=== PATIENT | female | born 1995 | race Asian ===

== ENCOUNTER 2019-05-07 17:33 | Emergency (ER) | payer OTHER ==
[2019-05-07] MEDS ORDERED: NA CHLORIDE 0.9% 1,000 ML ONE (17:55)
[2019-05-07 18:31] LABS: Absolute Lymphocytes (CBC) 4.7 K/uL (0.7-4.9); Basophils % 0.3 % (0-1.3); Hematocrit 40.6 % (36.0-45.0); MPV 8.6 fL (7.6-11.3)
[2019-05-07 18:40] LABS: Protime INR 0.88
[2019-05-07 18:42] LABS: ALT/SGPT 33 U/L (12-78); AST/SGOT 22 U/L (15-37); Albumin 4.3 g/dL (3.4-5.0); Alkaline Phosphatase 78 U/L (45-117); BUN Blood Urea Nitrogen 10 mg/dL (7-18); Bicarbonate 28 mmol/L (21-32); Bilirubin Direct 0.2 mg/dL (0-0.2); Bilirubin Total 0.7 mg/dL (0.2-1.0); Glucose Level 131 mg/dL (74-106); Magnesium 2.3 mg/dL (1.8-2.4); NT PRO-BNP 32 pg/mL (<125); Potassium 3.7 mmol/L (3.5-5.1); Protein, Total 8.6 g/dL (6.4-8.2); Sodium Level 139 mmol/L (136-145); Troponin (Emerg Dept Use Only) < 0.02 ng/mL (0.0-0.045)
--- NOTE | 2019-05-07 19:03 | EDPHYS ---
Physician Documentation [facility] Name: Teagan Welch Age: 23 yrs Sex: Female : 1995 Arrival Date: 05/07/2019 Time: 17:37 Bed 8 Private MD: ED Physician Lee Black HPI: 05/07 18:21 This 23 yrs old Female presents to ER via Ambulatory with complaints of Chest marcin Pain. 18:21 The patient or guardian reports chest pain that is located primarily in the anterior marcin chest wall, left. The pain radiates to left neck. Associated signs and symptoms: The patient has no apparent associated signs or symptoms. The chest pain is described as aching. Modifying factors: The symptoms are alleviated by nothing. the symptoms are aggravated by nothing. Severity of pain: At its worst the pain was mild in the emergency department the pain is unchanged. The patient has not experienced similar symptoms in the past. 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 - Social history:: Smoking status: Patient/guardian denies using tobacco. - Ebola Screening: : Patient denies travel to an Ebola-affected area in the 21 days before illness onset. - Family history:: not pertinent. ROS: 18:21 Constitutional: Negative for fever, chills, and weight loss, Eyes: Negative for injury, marcin pain, redness, and discharge, ENT: Negative for injury, pain, and discharge, Neck: Negative for injury, pain, and swelling, Respiratory: Negative for shortness of breath, cough, wheezing, and pleuritic chest pain, Abdomen/GI: Negative for abdominal pain, nausea, vomiting, diarrhea, and constipation, Back: Negative for injury and pain, : Negative for injury, bleeding, discharge, and swelling, MS/Extremity: Negative for injury and deformity, Skin: Negative for injury, rash, and discoloration, Neuro: Negative for headache, weakness, numbness, tingling, and seizure, Psych: Negative for depression, anxiety, suicide ideation, homicidal ideation, and hallucinations, Allergy/Immunology: Negative for hives, rash, and allergies, Endocrine: Negative for neck swelling, polydipsia, polyuria, polyphagia, and marked weight changes. 18:21 Cardiovascular: Positive for chest pain, of the left clavicle and anterior aspect of left upper chest. Exam: 18:21 Constitutional: This is a well developed, well nourished patient who is awake, alert, marcin and in no acute distress. Head/Face: Normocephalic, atraumatic. Eyes: Pupils equal round and reactive to light, extra-ocular motions intact. Lids and lashes normal. Conjunctiva and sclera are non-icteric and not injected. Cornea within normal limits. Periorbital areas with no swelling, redness, or edema. ENT: Nares patent. No nasal discharge, no septal abnormalities noted. Tympanic membranes are normal and external auditory canals are clear. Oropharynx with no redness, swelling, or masses, exudates, or evidence of obstruction, uvula midline. Mucous membranes moist. Neck: Trachea midline, no thyromegaly or masses palpated, and no cervical lymphadenopathy. Supple, full range of motion without nuchal rigidity, or vertebral point tenderness. No Meningismus. Cardiovascular: Regular rate and rhythm with a normal S1 and S2. No gallops, murmurs, or rubs. Normal PMI, no JVD. No pulse deficits. Respiratory: Lungs have equal breath sounds bilaterally, clear to auscultation and percussion. No rales, rhonchi or wheezes noted. No increased work of breathing, no retractions or nasal flaring. Abdomen/GI: Soft, non-tender, with normal bowel sounds. No distension or tympany. No guarding or rebound. No evidence of tenderness throughout. Back: No spinal tenderness. No costovertebral tenderness. Full range of motion. Skin: Warm, dry with normal turgor. Normal color with no rashes, no lesions, and no evidence of cellulitis. MS/ Extremity: Pulses equal, no cyanosis. Neurovascular intact. Full, normal range of motion. Neuro: Awake and alert, GCS 15, oriented to person, place, time, and situation. Cranial nerves II-XII grossly intact. Motor strength 5/5 in all extremities. Sensory grossly intact. Cerebellar exam normal. Normal gait. Psych: Awake, alert, with orientation to person, place and time. Behavior, mood, and affect are within normal limits. 18:21 Chest/axilla: Inspection: normal, no acute changes, Palpation: tenderness, that is mild, of the left clavicle and anterior aspect of left upper chest, Axilla: are normal, no abscess, no cellulitis, no mass, no palpable nodes, no rash, no acute changes, lymphadenopathy, is not appreciated, Lymph nodes: lymphadenopathy is not appreciated. 18:24 Musculoskeletal/extremity: DVT Exam: No signs of deep vein thrombosis. no pain, no marcin swelling, no tenderness, negative Homans' sign noted on exam, no appreciated bluish discoloration, no erythema, no increased warmth, no trauma, no stasis, no hc state. Vital Signs: 17:42 BP 146 / 86; Pulse 99; Resp 18; Temp 98.4; Pulse Ox 100% on R/A; Weight 76.2 kg (R); aj1 Height 5 ft. 3 in. (160.02 cm) (R); Pain 5/10; 19:42 BP 120 / 83; Pulse 84; Resp 16; Temp 98.1; Pulse Ox 98% on R/A; Pain 0/10; aa1 17:42 Body Mass Index 29.76 (76.20 kg, 160.02 cm) aj1 MDM: 17:43 Patient medically screened. [facility] 18:24 Data reviewed: vital signs, nurses notes, lab test result(s), EKG, radiologic studies, [facility] plain films. 05/07 17:46 Order name: Basic Metabolic Panel; Complete Time: 18:58 [facility] 05/07 17:46 Order name: CBC with Diff [facility] 05/07 17:46 Order name: LFT's; Complete Time: 18:58 [facility] 05/07 17:46 Order name: Magnesium; Complete Time: 18:58 [facility] 05/07 17:46 Order name: NT PRO-BNP; Complete Time: 18:58 [facility] 05/07 17:46 Order name: PT-INR; Complete Time: 18:58 [facility] 05/07 17:46 Order name: Troponin (emerg Dept Use Only); Complete Time: 18:58 [facility] 05/07 17:46 Order name: XRAY Chest (1 view) [facility] 05/07 17:46 Order name: D-Dimer; Complete Time: 18:58 [facility] 05/07 17:46 Order name: UDS [facility] 05/07 19:28 Order name: Urine Dipstick--Ancillary (enter results) [place] 05/07 19:28 Order name: Urine --Ancillary (enter results) [place] 05/07 19:31 Order name: Urine Culture [facility] 05/07 17:46 Order name: EKG; Complete Time: 17:48 [facility] 05/07 17:46 Order name: Cardiac monitoring; Complete Time: 17:53 [facility] 05/07 17:46 Order name: EKG - Nurse/Tech; Complete Time: 18:48 [facility] 05/07 17:46 Order name: IV Saline Lock; Complete Time: 17:53 [facility] 05/07 17:46 Order name: Labs collected and sent; Complete Time: 17:53 [facility] 05/07 17:46 Order name: O2 Per Protocol; Complete Time: 17:53 [facility] 05/07 17:46 Order name: O2 Sat Monitoring; Complete Time: 17:53 [facility] 05/07 17:46 Order name: Urine Dipstick-Ancillary (obtain specimen); Complete Time: 19:27 [facility] 05/07 17:46 Order name: Urine Test (obtain specimen); Complete Time: 19:27 [facility] Administered Medications: 18:25 Drug: NS 0.9% 1000 ml Route: IV; Rate: 1 bolus; Site: right antecubital; sg 19:40 Follow up: IV Status: Completed infusion; IV Intake: 1000ml aa1 19:27 Drug: Aspirin 162 mg Route: PO; hb 19:40 Follow up: Response: No adverse reaction; Medication administered at discharge. aa1 19:27 Drug: TORadol 30 mg Route: IVP; Site: right antecubital; hb 19:40 Follow up: Response: No adverse reaction; Medication administered at discharge. aa1 19:40 Drug: Rocephin 1 grams Route: IV; Rate: per protocol; Site: left antecubital; aa1 19:47 Follow up: IV Status: Completed infusion; IV Intake: 10ml aa1 Disposition: 05/07/19 19:02 Discharged to Home. Impression: Other chest pain - wall, Urinary tract infection, site not specified, Type 2 diabetes mellitus. - Condition is Stable. - Discharge Instructions: Nonspecific Chest Pain, Type 2 Diabetes Mellitus, Diagnosis, Adult, Urinary Tract Infection, Adult, Urinary Tract Infection, Adult, [id number], Aspirin and Your Heart, Type 2 Diabetes Mellitus, Diagnosis, Adult, [id number], Type 2 Diabetes Mellitus, Self Care, Adult, Type 2 Diabetes Mellitus, Self Care, Adult, [id number]. - Prescriptions for Cipro 250 mg Oral Tablet - take 1 tablet by ORAL route every 12 hours; 14 tablet. - Medication Reconciliation Form, Thank You Letter, Antibiotic Education, Prescription Opioid Use form. - Follow up: Private Physician; When: 2 - 3 days; Reason: Recheck today's complaints, Continuance of care, Re-evaluation by your physician. Follow up: Santos Brown MD; When: 2 - 3 days; Reason: Recheck today's complaints, Re-evaluation by your physician. - Problem is new. - Symptoms have improved. Signatures: Dispatcher [employer] EDMS Yodit Mcduffie RN RN aj1 Richie Conley RN RN sg Meg Leon RN RN aa1 Lee Black MD MD cha Baxter, Heather, RN RN Corrections: (The following items were deleted from the chart) 19:31 19:02 05/07/2019 19:02 Discharged to Home. Impression: Other chest pain - wall. marcin Condition is Stable. Forms are Medication Reconciliation Form, Thank You Letter, Antibiotic Education, Prescription Opioid Use. Follow up: Private Physician; When: 2 - 3 days; Reason: Recheck today's complaints, Continuance of care, Re-evaluation by your physician. Follow up: Santos Brown; When: 2 - 3 days; Reason: Recheck today's complaints, Re-evaluation by your physician. Problem is new. Symptoms have improved. marcin 19:32 19:31 05/07/2019 19:02 Discharged to Home. Impression: Other chest pain - wall; Urinary marcin tract infection, site not specified. Condition is Stable. Discharge Instructions: Nonspecific Chest Pain, Type 2 Diabetes Mellitus, Diagnosis, Adult, Aspirin and Your Heart, Type 2 Diabetes Mellitus, Diagnosis, Adult, [id number], Type 2 Diabetes Mellitus, Self Care, Adult, Type 2 Diabetes Mellitus, Self Care, Adult, [id number]. Forms are Medication Reconciliation Form, Thank You Letter, Antibiotic Education, Prescription Opioid Use. Follow up: Private Physician; When: 2 - 3 days; Reason: Recheck today's complaints, Continuance of care, Re-evaluation by your physician. Follow up: Santos Brown; When: 2 - 3 days; Reason: Recheck today's complaints, Re-evaluation by your physician. Problem is new. Symptoms have improved. [facility] 19:48 19:32 05/07/2019 19:02 Discharged to Home. Impression: Other chest pain - wall; Urinary aa1 tract infection, site not specified; Type 2 diabetes mellitus. Condition is Stable. Discharge Instructions: Nonspecific Chest Pain, Type 2 Diabetes Mellitus, Diagnosis, Adult, Aspirin and Your Heart, Type 2 Diabetes Mellitus, Diagnosis, Adult, [id number]-[id number], Type 2 Diabetes Mellitus, Self Care, Adult, Type 2 Diabetes Mellitus, Self Care, Adult, [id number]. Forms are Medication Reconciliation Form, Thank You Letter, Antibiotic Education, Prescription Opioid Use. Follow up: Private Physician; When: 2 - 3 days; Reason: Recheck today's complaints, Continuance of care, Re-evaluation by your physician. Follow up: Santos Brown; When: 2 - 3 days; Reason: Recheck today's complaints, Re-evaluation by your physician. Problem is new. Symptoms have improved. [facility]
--- NOTE | 2019-05-07 19:03 | ER ---
Nurse's Notes [facility] Name: Teagan Welch Age: 23 yrs Sex: Female : 1995 Arrival Date: 05/07/2019 Time: 17:37 Bed 8 Private MD: Diagnosis: Other chest pain-wall;Urinary tract infection, site not specified;Type 2 diabetes mellitus Presentation: 05/07 17:39 Presenting complaint: Patient states: "I've been having chest pains on and off for a aj1 couple weeks and then today it started to hurts into my arm and tingling into my neck area" Reports palpitations, shortness of breath denies dizziness. Transition of care: patient was not received from another setting of care. Onset of symptoms was 2018. Risk Assessment: Do you want to hurt yourself or someone else? Patient reports no desire to harm self or others. Initial Sepsis Screen: Does the patient meet any 2 criteria? HR > 90 bpm. No. Patient's initial sepsis screen is negative. Does the patient have a suspected source of infection? No. Patient's initial sepsis screen is negative. Care prior to arrival: None. 17:39 Method Of Arrival: Ambulatory aj1 17:39 Acuity: JAMES 3 aj1 Triage Assessment: 17:42 General: Appears in no apparent distress. comfortable, Behavior is calm, cooperative, aj1 appropriate for age. Pain: Pain currently is 5 out of 10 on a pain scale. Neuro: Level of Consciousness is awake, alert, obeys commands. Cardiovascular: Patient's skin is warm and dry. Respiratory: Airway is patent Respiratory effort is even, unlabored, Respiratory pattern is regular, symmetrical. 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 - Social history:: Smoking status: Patient/guardian denies using tobacco. - Ebola Screening: : Patient denies travel to an Ebola-affected area in the 21 days before illness onset. - Family history:: not pertinent. Screenin:10 Abuse screen: Denies threats or abuse. Denies injuries from another. Nutritional sg screening: No deficits noted. Tuberculosis screening: No symptoms or risk factors identified. Fall Risk None identified. Assessment: 18:10 General: Appears in no apparent distress. well groomed, well developed, well nourished, sg Behavior is calm, cooperative, appropriate for age. Pain: Complains of pain in chest and anterior aspect of left upper chest Quality of pain is described as tight, and sharp Is intermittent, episodic. Neuro: Level of Consciousness is awake, alert, obeys commands, Speech is normal, Facial symmetry appears normal. Cardiovascular: Capillary refill is brisk in bilateral fingers Patient's skin is warm and dry. Chest pain is denied. Respiratory: Airway is patent Respiratory effort is even, unlabored, Respiratory pattern is regular, symmetrical. GI: Abdomen is round non-distended. : No signs and/or symptoms were reported regarding the genitourinary system. EENT: No signs and/or symptoms were reported regarding the EENT system. Derm: Skin is pink, warm \\T\\ dry. Musculoskeletal: Circulation, motion, and sensation intact. Range of motion: intact in all extremities. 18:31 Reassessment: Patient appears in no apparent distress at this time. Patient is alert, sg oriented x 3, equal unlabored respirations, skin warm/dry/pink. 19:42 Reassessment: Patient appears in no apparent distress at this time. Patient is alert, aa1 oriented x 3, equal unlabored respirations, skin warm/dry/pink. Discussed d/c \\T\\ f/u instructions with pt; denies questions or concerns at this time. Ambulatory to lobby with steady gait Patient denies pain at this time. Patient states feeling better. Vital Signs: 17:42 BP 146 / 86; Pulse 99; Resp 18; Temp 98.4; Pulse Ox 100% on R/A; Weight 76.2 kg (R); aj1 Height 5 ft. 3 in. (160.02 cm) (R); Pain 5/10; 19:42 BP 120 / 83; Pulse 84; Resp 16; Temp 98.1; Pulse Ox 98% on R/A; Pain 0/10; aa1 17:42 Body Mass Index 29.76 (76.20 kg, 160.02 cm) aj1 ED Course: 17:37 Patient arrived in ED. mr 17:41 Triage completed. aj1 17:42 Arm band placed on Patient placed in an exam room. aj1 17:42 Patient has correct armband on for positive identification. Bed in low position. Call sg light in reach. vehicle monitor technician on. Pulse ox on. NIBP on. Door closed. Warm blanket given. Head of bed elevated. 17:43 Lee Black MD is Attending Physician. marcin 18:00 Initial lab(s) drawn, by me, sent to lab. Missed attempt(s): 22 gauge in right sg antecubital area. Bleeding controlled, band aid applied, catheter tip intact. 18:25 Inserted saline lock: 22 gauge in left antecubital area, using aseptic technique. Blood sg collected. 18:26 XRAY Chest (1 view) In Process Unspecified. EDMS 19:01 Santos Brown MD is Referral Physician. marcin 19:32 Urine collected: clean catch specimen, clear. sg 19:42 No provider procedures requiring assistance completed. IV discontinued, intact, aa1 bleeding controlled, No redness/swelling at site. Pressure dressing applied. Administered Medications: 18:25 Drug: NS 0.9% 1000 ml Route: IV; Rate: 1 bolus; Site: right antecubital; sg 19:40 Follow up: IV Status: Completed infusion; IV Intake: 1000ml aa1 19:27 Drug: Aspirin 162 mg Route: PO; hb 19:40 Follow up: Response: No adverse reaction; Medication administered at discharge. aa1 19:27 Drug: TORadol 30 mg Route: IVP; Site: right antecubital; hb 19:40 Follow up: Response: No adverse reaction; Medication administered at discharge. aa1 19:40 Drug: Rocephin 1 grams Route: IV; Rate: per protocol; Site: left antecubital; aa1 19:47 Follow up: IV Status: Completed infusion; IV Intake: 10ml aa1 Intake: 19:40 IV: 1000ml; Total: 1000ml. aa1 19:47 IV: 10ml; Total: 1010ml. aa1 Outcome: 19:02 Discharge ordered by . marcin 19:48 Discharged to home with family. aa1 19:48 Condition: good 19:48 Discharge instructions given to patient, family, Instructed on discharge instructions, follow up and referral plans. medication usage, Demonstrated understanding of instructions, follow-up care, medications, Prescriptions given X 1. 19:48 Patient left the ED. aa1 Addendum: 05/10/2019 07:57 Addendum: Culture Results: Positive urine culture. No further action required. Bacteria e b sensitive to prescribed antibiotic. Signatures: Dispatcher [employer] EDMS Yodit Mcduffie RN RN aj1 Richie Conley RN RN Meg Leon RN RN aa1 Lee Black MD MD cha Rivera, Mary mr Baxter, Heather, RN RN hb Botello, Elizabeth eb
[2019-05-07] MEDS ORDERED: ASPIRIN 81 MG CHEWABLE TABLET ONE (19:14)
[2019-05-07] MEDS ORDERED: KETOROLAC 30 MG/ML INJ ONE (19:14)
[2019-05-07 19:32] LABS: Urine Blood NEGATIVE (NEG); Urine Glucose NEGATIVE (NEG); Urine Protein NEGATIVE (NEG); Urine Specific Gravity 1.015 (1.005-1.030)
[2019-05-07] MEDS ORDERED: CEFTRIAXONE/SWI 1gm 1 GM/10 ML SYR ONE (19:37)
[2019-05-07 19:42] LABS: Barbiturates NEGATIVE (NEGATIVE); Benzodiazepines NEGATIVE (NEGATIVE); Cocaine NEGATIVE (NEGATIVE); METHAMPHETAM NEGATIVE (NEGATIVE); Methadone NEGATIVE (NEGATIVE); Opiates NEGATIVE (NEGATIVE); Phencyclidine NEGATIVE (NEGATIVE); THC Cannibis NEGATIVE (NEGATIVE)
--- NOTE | 2019-05-07 19:56 | RAD REPORT ---
EXAM DESCRIPTION: RAD - Chest Single View - 05/07/2019 6:25 pm CLINICAL HISTORY: Chest pain COMPARISON: January 2014 TECHNIQUE: AP portable chest image was obtained 1808 hours . FINDINGS: Lungs are clear. Heart and vasculature are normal. No measurable pleural effusion and no p neumothorax. No acute bony abnormality seen. No acute aortic findings suspected. IMPRESSION: No acute cardiopulmonary process.
[2019-05-07 20:02] LABS: Platelet Estimate ADEQ; Urine White Blood Cell Casts OK
[2019-05-07 20:03] LABS: Blood Morphology Comment NOTED (NOT SEEN)
[2019-05-07 20:55] VITALS: BP 120/83; TEMP 98.1; O2SAT 98
--- NOTE | 2019-05-08 12:22 | EKG ---
Test Date: 2019-05-07 Test Time: 18:09:28 Financial [employer] Plan Specialist: SWG MEASUREMENT RESULTS: Intervals: Rate: 96 MA: 154 QRSD: 88 QT: 334 QTc: 421 Elizabeth: P: 25 MA: 154 QRS: 73 T: 6 INTERPRETIVE STATEMENTS: Normal sinus rhythm Nonspecific T wave abnormality Abnormal ECG Compared to ECG 05/27/2015 21:18:44 Sinus tachycardia no longer present T-wave abnormality still present Electronically Signed On 05-08-19 12:19:33 [employer]REET[employer]ORMAN by Santos Brown
== END 2019-05-07 19:48 | disposition home or self-care (01) ==
LOC: ER 17:33
DX: N39.0 Urinary tract infection, site not specified (principal); E11.9 Type 2 diabetes mellitus without complications
CPT/HCPCS: 96361; 93005; 87088; 85025; 87086; 80048; 36415; 83735; 81025; 85610; 85379; 80076; 80307 ×8; 87077; 87186; 81003; 84484; 83880; 71045; 96375; 96374; 99284; J0696; J7030

== ENCOUNTER 2019-05-15 14:36 | Emergency (ER) | payer OTHER ==
[2019-05-15] MEDS ORDERED: NA CHLORIDE 0.9% 1,000 ML ONE (15:39)
--- NOTE | 2019-05-15 15:39 | RAD REPORT ---
EXAM DESCRIPTION: RAD - Chest Single View - 05/15/2019 3:26 pm CLINICAL HISTORY: Chest pain;Palpitations Chest pain. COMPARISON: Chest Single View dated 05/07/2019; CHEST PA AND LAT 2 VIEW dated 01/16/2014; CHEST PA AND LAT 2 VIEW dated 02/22/2010 FINDINGS: Portable technique limits examination quality. The lungs are grossly clear. The heart is normal in size. No displaced fractures. IMPRESSION: No acute intrathoracic process suspected.
[2019-05-15 15:52] LABS: Absolute Lymphocytes (CBC) 2.8 K/uL (0.7-4.9); Basophils % 0.5 % (0-1.3); Hematocrit 40.5 % (36.0-45.0); Lymphocytes % 28.4 % (15.3-44.8); MPV 8.4 fL (7.6-11.3); RBC Red Blood Cell Count 6.33 M/uL (3.86-4.86)
--- NOTE | 2019-05-15 15:58 | EKG ---
Test Date: 2019-05-15 Test Time: 15:09:49 Medicaid Billing Clerk: SARAH MEASUREMENT RESULTS: Intervals: Rate: 88 PA: 154 QRSD: 88 QT: 346 QTc: 418 Hugo: P: 50 PA: 154 QRS: 68 T: 34 INTERPRETIVE STATEMENTS: Normal sinus rhythm Cannot rule out Anterior infarct, age undetermined Abnormal ECG Compared to ECG 05/07/2019 18:09:28 Myocardial infarct finding now present T-wave abnormality no longer present Electronically Signed On 05-15-19 15:58:02 PATTERN STAMPER by Santos Brown
[2019-05-15 16:11] LABS: Urine Bacteria <20 /HPF (<20); Urine Culture Reflex Order NOT NEEDED; Urine RBC <5 /HPF (NONE SEEN)
[2019-05-15 16:14] LABS: BUN Blood Urea Nitrogen 10 mg/dL (7-18); Bicarbonate 28 mmol/L (21-32); Glucose Level 229 mg/dL (74-106); Magnesium 2.2 mg/dL (1.8-2.4); NT PRO-BNP 38 pg/mL (<125); Sodium Level 137 mmol/L (136-145); Thyroid Stimulating Hormone 0.652 uIU/mL (0.360-3.740); Troponin (Emerg Dept Use Only) < 0.02 ng/mL (0.0-0.045)
--- NOTE | 2019-05-15 17:33 | ER ---
Nurse's Notes [facility] Name: Teagan Welch Age: 23 yrs Sex: Female : 1995 Arrival Date: 05/15/2019 Time: 14:40 Bed 14 Private MD: Diagnosis: Palpitations;Dyspnea, unspecified Presentation: 05/15 14:40 Presenting complaint: Patient states: for the passed 2-3 days i feel short of breath, tw2 even just walking or talking i feel short of breath, and i feel like my heart is pounding. Transition of care: patient was not received from another setting of care. Onset of symptoms was May 15, 2019. Risk Assessment: Do you want to hurt yourself or someone else? Patient reports no desire to harm self or others. Initial Sepsis Screen: Does the patient meet any 2 criteria? No. Patient's initial sepsis screen is negative. Does the patient have a suspected source of infection? No. Patient's initial sepsis screen is negative. Care prior to arrival: None. 14:40 Method Of Arrival: Ambulatory tw2 14:40 Acuity: JAMES 3 tw2 Triage Assessment: 14:43 General: Appears in no apparent distress. Behavior is calm, cooperative, appropriate tw2 for age. Pain: Complains of pain in chest. Respiratory: Reports shortness of breath Onset: The symptoms/episode began/occurred 2-3 days, the patient has mild shortness of breath. 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 - Social history:: Smoking status: Patient/guardian denies using tobacco. - Ebola Screening: : Patient denies travel to an Ebola-affected area in the 21 days before illness onset. Screenin:45 Abuse screen: Denies threats or abuse. Nutritional screening: No deficits noted. tw2 Tuberculosis screening: No symptoms or risk factors identified. Fall Risk None identified. Assessment: 14:50 General: Appears in no apparent distress. comfortable, Behavior is calm, cooperative, rb1 Denies fever. Pain: Complains of pain in mid-sternal area Pain currently is 5 out of 10 on a pain scale. Pain began 2-3 days ago. Neuro: Level of Consciousness is awake, alert, obeys commands, Oriented to person, place, time, situation. Neuro: Denies blurred vision. Cardiovascular: Reports shortness of breath, feels like heart is racing Rhythm is sinus tachycardia. Respiratory: Airway is patent Respiratory effort is even, unlabored, Respiratory pattern is regular, symmetrical. GI: Reports nausea. : No signs and/or symptoms were reported regarding the genitourinary system. Derm: Skin is pink, warm \\T\\ dry. 15:50 Reassessment: Pt. reports that her IV is painful when being flushed. rb1 15:55 Reassessment: Patient appears in no apparent distress at this time. Patient and/or rb1 family updated on plan of care and expected duration. Pain level reassessed. Patient is alert, oriented x 3, equal unlabored respirations, skin warm/dry/pink. Initiated a new IV in the right AC, and discontinued the IV in the left AC. 16:42 Reassessment: Patient appears in no apparent distress at this time. Patient and/or rb1 family updated on plan of care and expected duration. Pain level reassessed. Patient is alert, oriented x 3, equal unlabored respirations, skin warm/dry/pink. Patient denies pain at this time. Patient states feeling better. 17:40 Reassessment: Patient appears in no apparent distress at this time. No changes from rb1 previously documented assessment. Friends at bedside. Vital Signs: 14:41 BP 136 / 92; Pulse 112; Resp 19; Temp 98.4(TE); Pulse Ox 100% on R/A; Weight 75.75 kg tw2 (R); Height 5 ft. 3 in. (160.02 cm); Pain 7/10; 15:30 BP 105 / 74; Pulse 95; Resp 17; Pulse Ox 99% on R/A; Pain 0/10; rb1 16:21 BP 104 / 58; Pulse 93; Resp 14; Temp 98.2; Pulse Ox 98% ; mh5 17:20 BP 117 / 75; Pulse 89; Resp 16; Temp 98.0(O); Pulse Ox 99% on R/A; Pain 0/10; rb1 17:55 BP 107 / 79; Pulse 95; Resp 14; Pulse Ox 100% on R/A; Pain 0/10; rb1 14:41 Body Mass Index 29.58 (75.75 kg, 160.02 cm) tw2 ED Course: 14:40 Patient arrived in ED. mr 14:41 Triage completed. tw2 14:43 Arm band placed on. tw2 14:45 Placed in gown. Bed in low position. Adult w/ patient. tw2 14:46 Darius Duron MD is Attending Physician. rn 14:50 reinforcing steel placer on. Pulse ox on. NIBP on. rb1 15:03 Porsha Horan, RN is Primary Nurse. rb1 15:17 EKG done, by driver service technician. reviewed by Darius Duron MD. sm3 15:26 XRAY Chest (1 view) In Process Unspecified. EDMS 15:47 Initial lab(s) drawn, by de, sent to lab. Urine collected: clean catch specimen, clear. mh5 Inserted saline lock: 22 gauge in left antecubital area, using aseptic technique. 15:47 Urine Microscopic Only Sent. mh5 15:47 D-Dimer Sent. mh5 15:47 T4 Free Sent. mh5 15:47 TSH Sent. mh5 15:48 Basic Metabolic Panel Sent. mh5 15:48 CBC with Diff Sent. mh5 15:48 Magnesium Sent. mh5 15:48 NT PRO-BNP Sent. mh5 15:48 Troponin (emerg Dept Use Only) Sent. mh5 15:55 Inserted saline lock: 22 gauge in right antecubital area, using aseptic technique. rb1 16:03 IV discontinued, intact, bleeding controlled, No redness/swelling at site. Pressure rb1 dressing applied, left AC. 18:00 No provider procedures requiring assistance completed. IV discontinued, intact, rb1 bleeding controlled, No redness/swelling at site. Pressure dressing applied. Administered Medications: 15:55 Drug: NS 0.9% 1000 ml Route: IV; Rate: 1000 ml; Site: right antecubital; rb1 Outcome: 17:32 Discharge ordered by . rn 18:00 Patient left the ED. rb1 18:00 Discharged to home ambulatory, with friend. rb1 18:00 Condition: stable 18:00 Discharge instructions given to patient, Instructed on discharge instructions, follow up and referral plans. Demonstrated understanding of instructions, follow-up care, Prescriptions given X none Signatures: Dispatcher [employer] SOFIAKatrin Sheikh, MD UMAIR Mccoy rn Porsha Horan RN RN rb1 Milka Price RN RN [facility] Mouna Mac [facility] Tyra Warren 3 Corrections: (The following items were deleted from the chart) 18:10 18:09 Patient left the ED. rb1 rb1 18:12 16:03 IV discontinued, intact, bleeding controlled, No redness/swelling at site. rb1 Pressure dressing applied, rb1
--- NOTE | 2019-05-15 17:34 | EDPHYS ---
Physician Documentation [facility] Name: Teagan Welch Age: 23 yrs Sex: Female : 1995 Arrival Date: 05/15/2019 Time: 14:40 Bed 14 Private MD: ED Physician Darius Duron HPI: 05/15 15:23 This 23 yrs old Female presents to ER via Ambulatory with complaints of Shortness rn Of Breath, palpitations. 15:23 The patient has shortness of breath at rest, with light activity. rn 15:23 Onset: The symptoms/episode began/occurred 3 day(s) ago. Duration: The symptoms are rn intermittent. The patient's shortness of breath is aggravated by nothing, is alleviated by nothing. Severity of symptoms: At their worst the symptoms were moderate in the emergency department the symptoms have improved. The patient has experienced similar episodes in the past. The patient has not recently seen a physician. Reports intermittent sob and palpitations, has happened multiple times before, not sure why, reports happens randomly, no chest pain or syncope. Denies fever/vomiting/diarrhea/cough/trauma. Reports has been doing herbalife and trying to lose weight. Denies any stimulants otherwise. . 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 - Social history:: Smoking status: Patient/guardian denies using tobacco. - Ebola Screening: : Patient denies travel to an Ebola-affected area in the 21 days before illness onset. ROS: 15:26 Constitutional: Negative for fever, chills, and weight loss, Eyes: Negative for injury, rn pain, redness, and discharge, Neck: Negative for injury, pain, and swelling, Cardiovascular: Negative for chest pain and edema, Respiratory: Negative for shortness of breath, cough, wheezing, and pleuritic chest pain, Abdomen/GI: Negative for abdominal pain, nausea, vomiting, diarrhea, and constipation, MS/Extremity: Negative for injury and deformity, Skin: Negative for injury, rash, and discoloration, Neuro: Negative for headache, weakness, numbness, tingling, and seizure. Exam: 15:26 Constitutional: This is a well developed, well nourished patient who is awake, alert, rn and in no acute distress. Head/Face: Normocephalic, atraumatic. ENT: dry MM Cardiovascular: Tachycardic, regular Respiratory: Lungs have equal breath sounds bilaterally. No increased work of breathing, no retractions or nasal flaring. Abdomen/GI: soft, non-tender MS/ Extremity: Pulses equal, no cyanosis. Neurovascular intact. Full, normal range of motion. Equal circumference. Neuro: Awake and alert, GCS 15, oriented to person, place, time, and situation. Cranial nerves II-XII grossly intact. Motor strength 5/5 in all extremities. Sensory grossly intact. Cerebellar exam normal. Vital Signs: 14:41 BP 136 / 92; Pulse 112; Resp 19; Temp 98.4(TE); Pulse Ox 100% on R/A; Weight 75.75 kg tw2 (R); Height 5 ft. 3 in. (160.02 cm); Pain 7/10; 15:30 BP 105 / 74; Pulse 95; Resp 17; Pulse Ox 99% on R/A; Pain 0/10; rb1 16:21 BP 104 / 58; Pulse 93; Resp 14; Temp 98.2; Pulse Ox 98% ; mh5 17:20 BP 117 / 75; Pulse 89; Resp 16; Temp 98.0(O); Pulse Ox 99% on R/A; Pain 0/10; rb1 17:55 BP 107 / 79; Pulse 95; Resp 14; Pulse Ox 100% on R/A; Pain 0/10; rb1 14:41 Body Mass Index 29.58 (75.75 kg, 160.02 cm) tw2 Procedures: 16:19 Joint Treatment: Aspiration of left wrist using 25 g needle. Removed 2 ml's of clear rn fluid, cloudy fluid, yellow fluid, Specimen sent to lab. Dressed with band aid, Patient tolerated well. MDM: 14:46 Patient medically screened. rn 15:27 ED course: Reports seen recently and told maybe anxiety, had recent w/u for chest pain, rn reports doesn't take her xanax that was prescribed. . 17:30 Differential diagnosis: Anxiety Reaction Pneumothorax Psychogenic pulmonary edema, rn Pulmonary Embolism. Data reviewed: vital signs, nurses notes, lab test result(s), EKG, radiologic studies, plain films, and as a result, I will discharge patient. Data interpreted: negotiator: rate is 93 beats/min, rhythm is normal sinus rhythm, with no ectopy, Interpretation: normal rate, normal rhythm. Counseling: I had a detailed discussion with the patient and/or guardian regarding: the historical points, exam findings, and any diagnostic results supporting the discharge/admit diagnosis, lab results, radiology results, the need for outpatient follow up, to return to the emergency department if symptoms worsen or persist or if there are any questions or concerns that arise at home. 05/15 15:00 Order name: Basic Metabolic Panel; Complete Time: 17:29 rn 05/15 15:00 Order name: CBC with Diff rn 05/15 15:00 Order name: Magnesium; Complete Time: 17:29 rn 05/15 15:00 Order name: NT PRO-BNP; Complete Time: 17:29 rn 05/15 15:00 Order name: Troponin (emerg Dept Use Only); Complete Time: 17:29 rn 05/15 15:00 Order name: TSH; Complete Time: 17:29 rn 05/15 15:00 Order name: XRAY Chest (1 view); Complete Time: 15:55 rn 05/15 15:00 Order name: T4 Free; Complete Time: 17:29 rn 05/15 15:00 Order name: D-Dimer; Complete Time: 17:29 rn 05/15 15:00 Order name: Urine Microscopic Only; Complete Time: 17:29 rn 05/15 15:48 Order name: Urine Dipstick--Ancillary (enter results) sp 05/15 15:53 Order name: Urine --Ancillary (enter results); Complete Time: 17:29 sp 05/15 17:57 Order name: CBC Smear Scan EDMS 05/15 15:00 Order name: EKG; Complete Time: 15:01 rn 05/15 15:00 Order name: Cardiac monitoring; Complete Time: 15:48 rn 05/15 15:00 Order name: EKG - Nurse/Tech; Complete Time: 16:35 rn 05/15 15:00 Order name: IV Saline Lock; Complete Time: 15:48 rn 05/15 15:00 Order name: Labs collected and sent; Complete Time: 15:48 rn 05/15 15:00 Order name: O2 Per Protocol; Complete Time: 16:35 rn 05/15 15:00 Order name: O2 Sat Monitoring; Complete Time: 16:35 rn 05/15 15:00 Order name: Urine Test (obtain specimen); Complete Time: 15:47 rn 05/15 15:00 Order name: Urine Dipstick-Ancillary (obtain specimen); Complete Time: 15:47 rn Administered Medications: 15:55 Drug: NS 0.9% 1000 ml Route: IV; Rate: 1000 ml; Site: right antecubital; rb1 Disposition: 05/15/19 17:32 Discharged to Home. Impression: Palpitations, Dyspnea, unspecified. - Condition is Stable. - Discharge Instructions: Palpitations, Shortness of Breath. - Medication Reconciliation Form, Thank You Letter, Antibiotic Education, Prescription Opioid Use form. - Follow up: Private Physician; When: As needed; Reason: Recheck today's complaints, Re-evaluation by your physician. - Problem is new. - Symptoms have improved. Signatures: Dispatcher [employer] EDMS Darius Duron MD MD rn Barber, Rebecca RN RN rb1 Milka Price RN RN tw2 Corrections: (The following items were deleted from the chart) 18:09 17:32 05/15/2019 17:32 Discharged to Home. Impression: Palpitations; Dyspnea, rb1 unspecified. Condition is Stable. Forms are Medication Reconciliation Form, Thank You Letter, Antibiotic Education, Prescription Opioid Use. Follow up: Private Physician; When: As needed; Reason: Recheck today's complaints, Re-evaluation by your physician. Problem is new. Symptoms have improved. rn
[2019-05-15 17:57] LABS: Blood Morphology Comment NOTED (NOT SEEN); Hypochromasia 2+; Platelet Estimate ADEQ; Urine White Blood Cell Casts OK
[2019-05-15 18:19] VITALS: BP 117/75; TEMP 98; O2SAT 99
[2019-05-15 20:12] LABS: Urine Blood NEGATIVE (NEG); Urine Glucose 2+ (NEG); Urine Protein NEGATIVE (NEG); Urine pH 6.5 (5.0-7.0)
== END 2019-05-15 18:09 | disposition home or self-care (01) ==
LOC: ER 14:36
DX: R00.2 Palpitations (principal); E11.9 Type 2 diabetes mellitus without complications
CPT/HCPCS: 93005; 85025; 80048; 36415; 83735; 81025; 85379; 84443; 84484; 84439; 83880; 71045; 99285; J7030; 81003; 81015

== ENCOUNTER 2019-07-12 12:03 | Emergency (ER) | payer OTHER ==
[2019-07-12 13:40] LABS: Urine Blood 2+ (NEG); Urine Glucose NEGATIVE (NEG); Urine Protein NEGATIVE (NEG)
[2019-07-12 14:22] LABS: Urine Bacteria <20 /HPF (<20); Urine Culture Reflex Order REFLEXED
--- NOTE | 2019-07-12 14:34 | ER ---
Nurse's Notes [facility] Name: Teagan Welch Age: 23 yrs Sex: Female : 1995 Arrival Date: 07/12/2019 Time: 12:13 Bed 12 Private MD: DREW OBRIEN Diagnosis: Cystitis;Low back pain Presentation: 07/12 12:37 Presenting complaint: Patient states: Low back pain and burning with urination for sg about 4 days reports pain to be in bilateral flank. Transition of care: patient was not received from another setting of care. Onset of symptoms was July 12, 2019. Risk Assessment: Do you want to hurt yourself or someone else? Patient reports no desire to harm self or others. Initial Sepsis Screen: Does the patient meet any 2 criteria? No. Patient's initial sepsis screen is negative. Does the patient have a suspected source of infection? No. Patient's initial sepsis screen is negative. Care prior to arrival: None. 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 - Social history:: Smoking status: Patient/guardian denies using tobacco. - Ebola Screening: : Patient negative for fever greater than or equal to 101.5 degrees Fahrenheit, and additional compatible Ebola Virus Disease symptoms Patient denies exposure to infectious person Patient denies travel to an Ebola-affected area in the 21 days before illness onset No symptoms or risks identified at this time. Screenin:15 Abuse screen: Denies threats or abuse. Denies injuries from another. Nutritional ss screening: No deficits noted. Tuberculosis screening: Never had TB. Fall Risk None identified. Assessment: 13:15 General: Appears in no apparent distress. comfortable, Behavior is Denies fever, ss feeling ill, fatigue, chills. Pain: Complains of pain in low back, suprapubic area Pain currently is 6 out of 10 on a pain scale. Quality of pain is described as suprapubic discomfort and low back achiness Pain began 1 week ago, back pain began 2 days ago Is continuous. Neuro: Level of Consciousness is awake, alert, obeys commands, Oriented to person, place, time, situation. Cardiovascular: Capillary refill < 3 seconds is brisk in bilateral fingers. Respiratory: Airway is patent Respiratory effort is even, unlabored, Respiratory pattern is regular, symmetrical. GI: Patient currently denies diarrhea, nausea, vomiting. : Reports burning with urination, since x 1 week Denies inability to void, vaginal bleeding, vaginal itching. EENT: Oral mucosa is moist. Derm: Skin is intact, is healthy with good turgor, Skin is dry, Skin is pink, warm \T\ dry. normal. Musculoskeletal: Circulation, motion, and sensation intact. Range of motion: intact in all extremities. 14:31 Reassessment: Patient appears in no apparent distress at this time. Patient and/or ss family updated on plan of care and expected duration. Pain level reassessed. Patient is alert, oriented x 3, equal unlabored respirations, skin warm/dry/pink. awaiting UMIC results. Vital Signs: 12:36 BP 114 / 80; Pulse 79; Resp 18; Temp 98.7; Pulse Ox 100% ; Weight 83.91 kg; Height 5 sg ft. 3 in. (160.02 cm); Pain 6/10; 12:36 Body Mass Index 32.77 (83.91 kg, 160.02 cm) sg ED Course: 12:13 Patient arrived in ED. am2 12:14 DREW OBRIEN is Private Physician. am2 12:33 Arm band placed on. sg 12:38 Triage completed. sg 13:15 Patient has correct armband on for positive identification. Bed in low position. Call ss light in reach. 13:31 Mayra Quiñonez, LAM is Primary Nurse. ss 13:31 Roderick Smith PA is PHCP. jr8 13:31 Lee Black MD is Attending Physician. jr8 14:49 No provider procedures requiring assistance completed. Patient did not have IV access ss during this emergency room visit. Administered Medications: No medications were administered Outcome: 14:33 Discharge ordered by . jr8 14:49 Discharged to home ss 14:49 Condition: good 14:49 Discharge instructions given to patient, family, Instructed on discharge instructions, follow up and referral plans. medication usage, Demonstrated understanding of instructions, follow-up care, medications, Prescriptions given X 2. 14:50 Patient left the ED. Addendum: 07/15/2019 07:41 Addendum: Culture Results: Positive urine culture. Bacteria is resistant to, has s s intermediate sensitivity, or is not tested against prescribed antibiotics. Report given to JOANIE for further evaluation and then to piano mechanic for follow up with patient. 16:31 Addendum: Culture Results: Phone call Attempt #1 no answer, VM has not been set up. s s Certified letter sent to listed address for patient. Signatures: Richie Conley RN RN Mayra Quiñonez RN RN Roderick Smith PA PA jr8 Pura Cantu am2
--- NOTE | 2019-07-12 14:34 | EDPHYS ---
Physician Documentation [facility] Name: Teagan Welch Age: 23 yrs Sex: Female : 1995 Arrival Date: 07/12/2019 Time: 12:13 Bed 12 Private MD: DREW OBRIEN ED Physician Lee Black HPI: 07/12 13:59 This 23 yrs old Female presents to ER via Ambulatory with complaints of Low Back jr8 Pain. 13:59 The patient presents with pain that is acute. The symptoms are located in the low back. jr8 The pain does not radiate. The problem was sustained from unknown cause. Onset: The symptoms/episode began/occurred gradually, 2 day(s) ago. Modifying factors: The patient symptoms are alleviated by nothing, the patient symptoms are aggravated by movement. Associated signs and symptoms: Pertinent positives: abdominal pain, dysuria. Severity of symptoms: At their worst the symptoms were mild, in the emergency department the symptoms are unchanged. It is unknown whether or not the patient has had similar symptoms in the past. The patient has not recently seen a physician. Stated that she has had mild urinary symptoms that started about 1 week ago. Stated that now she has low back pain. Denies trauma to back . 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 - Social history:: Smoking status: Patient/guardian denies using tobacco. - Ebola Screening: : Patient negative for fever greater than or equal to 101.5 degrees Fahrenheit, and additional compatible Ebola Virus Disease symptoms Patient denies exposure to infectious person Patient denies travel to an Ebola-affected area in the 21 days before illness onset No symptoms or risks identified at this time. ROS: 13:59 Eyes: Negative for injury, pain, redness, and discharge, ENT: Negative for injury, jr8 pain, and discharge, Neck: Negative for injury, pain, and swelling, Cardiovascular: Negative for chest pain, palpitations, and edema, Respiratory: Negative for shortness of breath, cough, wheezing, and pleuritic chest pain, MS/Extremity: Negative for injury and deformity, Skin: Negative for injury, rash, and discoloration, Neuro: Negative for headache, weakness, numbness, tingling, and seizure. 13:59 Abdomen/GI: Positive for abdominal cramps, Negative for nausea, vomiting, and diarrhea, abdominal distension, anorexia, dysphagia, hematemesis, black/tarry stool, rectal pain, rectal bleeding, bowel incontinence, flatulence. 13:59 Back: Positive for pain at rest, pain with movement, Negative for radiated pain. 13:59 : Positive for urinary symptoms. Exam: 13:59 Eyes: Pupils equal round and reactive to light, extra-ocular motions intact. Lids and jr8 lashes normal. Conjunctiva and sclera are non-icteric and not injected. Cornea within normal limits. Periorbital areas with no swelling, redness, or edema. ENT: Nares patent. No nasal discharge, no septal abnormalities noted. Tympanic membranes are normal and external auditory canals are clear. Oropharynx with no redness, swelling, or masses, exudates, or evidence of obstruction, uvula midline. Mucous membranes moist. Neck: Trachea midline, no thyromegaly or masses palpated, and no cervical lymphadenopathy. Supple, full range of motion without nuchal rigidity, or vertebral point tenderness. No Meningismus. Cardiovascular: Regular rate and rhythm with a normal S1 and S2. No gallops, murmurs, or rubs. Normal PMI, no JVD. No pulse deficits. Respiratory: Lungs have equal breath sounds bilaterally, clear to auscultation and percussion. No rales, rhonchi or wheezes noted. No increased work of breathing, no retractions or nasal flaring. Abdomen/GI: Soft, non-tender, with normal bowel sounds. No distension or tympany. No guarding or rebound. No evidence of tenderness throughout. Back: No spinal tenderness. No costovertebral tenderness. Full range of motion. Skin: Warm, dry with normal turgor. Normal color with no rashes, no lesions, and no evidence of cellulitis. MS/ Extremity: Pulses equal, no cyanosis. Neurovascular intact. Full, normal range of motion. Neuro: Awake and alert, GCS 15, oriented to person, place, time, and situation. Cranial nerves II-XII grossly intact. Motor strength 5/5 in all extremities. Sensory grossly intact. Cerebellar exam normal. Normal gait. Vital Signs: 12:36 BP 114 / 80; Pulse 79; Resp 18; Temp 98.7; Pulse Ox 100% ; Weight 83.91 kg; Height 5 sg ft. 3 in. (160.02 cm); Pain 6/10; 12:36 Body Mass Index 32.77 (83.91 kg, 160.02 cm) sg MDM: 13:31 Patient medically screened. jr8 14:32 Differential diagnosis: strain, sciatica, Herniated disc UTI. Data reviewed: vital jr8 signs, nurses notes, lab test result(s). Data interpreted: Pulse oximetry: on room air is 100 %. Interpretation: normal. Counseling: I had a detailed discussion with the patient and/or guardian regarding: the historical points, exam findings, and any diagnostic results supporting the discharge/admit diagnosis, lab results, the need for outpatient follow up, a family practitioner, to return to the emergency department if symptoms worsen or persist or if there are any questions or concerns that arise at home. 07/12 13:31 Order name: Urine Dipstick--Ancillary (enter results); Complete Time: 13:50 07/12 13:31 Order name: Urine --Ancillary (enter results); Complete Time: 13:50 eb 07/12 13:50 Order name: Urine Microscopic Only; Complete Time: 14:32 jr8 07/12 14:24 Order name: Urine Culture EDMS Administered Medications: No medications were administered Disposition: 16:42 Co-signature as Attending Physician, Lee Black MD I agree with the assessment and marcin plan of care. Disposition: 07/12/19 14:33 Discharged to Home. Impression: Cystitis, Low back pain. - Condition is Stable. - Discharge Instructions: Back Pain, Adult, Dysuria, Musculoskeletal Pain, Heat Therapy. - Prescriptions for Amoxicillin 875 mg Oral Tablet - take 1 tablet by ORAL route every 12 hours for 7 days; 14 tablet. Ibuprofen 800 mg Oral Tablet - take 1 tablet by ORAL route every 12 hours As needed take with food; 20 tablet. - Medication Reconciliation Form, Thank You Letter, Antibiotic Education, Prescription Opioid Use form. - Follow up: Private Physician; When: 1 week; Reason: Recheck today's complaints, Continuance of care, Re-evaluation by your physician. - Problem is new. - Symptoms have improved. Signatures: [facility] Richie Owen, RN RN sg Lee Black MD MD cha Smirch, Shelby, RN RN ss Roderick Smith PA PA jr8 Corrections: (The following items were deleted from the chart) 14:50 14:33 07/12/2019 14:33 Discharged to Home. Impression: Cystitis; Low back pain. ss Condition is Stable. Forms are Medication Reconciliation Form, Thank You Letter, Antibiotic Education, Prescription Opioid Use. Follow up: Private Physician; When: 1 week; Reason: Recheck today's complaints, Continuance of care, Re-evaluation by your physician. Problem is new. Symptoms have improved. jr8
[2019-07-12 15:06] VITALS: BP 114/80; TEMP 98.7; O2SAT 100
== END 2019-07-12 14:50 | disposition home or self-care (01) ==
LOC: ER 12:03
DX: N30.90 Cystitis, unspecified without hematuria (principal)
CPT/HCPCS: 81003; 81015; 81025; 87077; 87086; 87088; 87186; 99282

== ENCOUNTER 2019-08-09 15:13 | Emergency (ER) | payer OTHER ==
[2019-08-09] MEDS ORDERED: IPRATROPIUM BROM 0.5MG/2.5ML ONE (15:36)
[2019-08-09] MEDS ORDERED: ALBUTEROL 2.5 MG/3 ML NEB SOL ONE (15:36)
--- NOTE | 2019-08-09 16:06 | ER ---
Nurse's Notes [facility] Name: Teagan Welch Age: 23 yrs Sex: Female : 1995 Arrival Date: 08/09/2019 Time: 15:16 Bed 18 Private MD: Diagnosis: Acute upper respiratory infection, unspecified Presentation: 08/09 15:19 Presenting complaint: Patient states: i have had a cough for 2 weeks it started to get tw2 better then the passed 2 days it got worse, i think i have bronchitis, and i am congested, no fever. Transition of care: patient was not received from another setting of care. Onset of symptoms was August 09, 2019. Risk Assessment: Do you want to hurt yourself or someone else? Patient reports no desire to harm self or others. Initial Sepsis Screen: Does the patient meet any 2 criteria? No. Patient's initial sepsis screen is negative. Does the patient have a suspected source of infection? No. Patient's initial sepsis screen is negative. Care prior to arrival: None. 15:19 Method Of Arrival: Ambulatory tw2 15:19 Acuity: JAMES 4 tw2 Triage Assessment: 15:20 General: Appears in no apparent distress. Behavior is calm, cooperative, appropriate tw2 for age. Pain: Denies pain. EENT: Reports nasal congestion nasal discharge. Respiratory: Reports cough that is. 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 - Coronavirus screen:: The patient has NOT traveled to [place], [place], or [place] in the past 14 days. - Social history:: Smoking status: . - Ebola Screening: : Patient denies travel to an Ebola-affected area in the 21 days before illness onset. Screenin:30 Abuse screen: Denies threats or abuse. Denies injuries from another. Nutritional sv screening: No deficits noted. Tuberculosis screening: No symptoms or risk factors identified. Fall Risk None identified. Assessment: 15:30 General: Appears in no apparent distress. comfortable, well developed, Behavior is sv calm, cooperative, appropriate for age. Pain: Denies pain. Neuro: Level of Consciousness is awake, alert, obeys commands, Oriented to person, place, time, situation, Moves all extremities. Full function Gait is steady, Speech is normal. Respiratory: Reports cough that is productive, persistent green mucous Airway is patent Respiratory effort is even, unlabored, Respiratory pattern is regular, symmetrical. Derm: Skin is normal. Vital Signs: 15:19 BP 122 / 87; Pulse 114; Resp 17; Temp 97.9(TE); Pulse Ox 100% on R/A; Weight 72.57 kg; tw2 Height 5 ft. 3 in. (160.02 cm); Pain 0/10; 15:19 Body Mass Index 28.34 (72.57 kg, 160.02 cm) tw2 ED Course: 15:16 Patient arrived in ED. mr 15:19 Triage completed. tw2 15:20 Arm band placed on. tw2 15:23 Bridger Johnson FNP-C is [facility]. la1 15:23 Darius Duron MD is Attending Physician. la1 15:30 Patient has correct armband on for positive identification. Bed in low position. Call sv light in reach. Adult w/ patient. Door closed. Head of bed elevated. 15:37 Tashia Ortega RN is Primary Nurse. 16:07 No provider procedures requiring assistance completed. Patient did not have IV access ah during this emergency room visit. Administered Medications: 15:38 Drug: Albuterol - atroVENT (3:1) (2.5 mg - 0.5 mg) 3 ml Route: Nebulizer; sv 16:07 Follow up: Response: No adverse reaction Outcome: 15:52 Discharge ordered by . la1 16:05 Discharged to home 16:05 Discharged to home ambulatory. 16:05 Condition: stable 16:05 Discharge instructions given to patient, family, Instructed on discharge instructions, follow up and referral plans. medication usage, Demonstrated understanding of instructions, follow-up care, medications, Prescriptions given X 3. 16:08 Patient left the ED. Signatures: Tashia Ortega RN RN Katrin Hernandez mr Bridger Johnson FNP-C FNP-Cla1 Milka Price, RN RN tw2 Peyton Reynolds, RN RN ah
--- NOTE | 2019-08-09 16:06 | EDPHYS ---
Physician Documentation [facility] Name: Teagan Welch Age: 23 yrs Sex: Female : 1995 Arrival Date: 08/09/2019 Time: 15:16 Bed 18 Private MD: ED Physician Darius Duron HPI: 08/09 15:39 This 23 yrs old Female presents to ER via Ambulatory with complaints of Cough. la1 15:39 The patient or guardian reports cough, that is intermittent, described as mild. Onset: la1 The symptoms/episode began/occurred 2 week(s) ago. Severity of symptoms: At their worst the symptoms were very mild. Associated signs and symptoms: Pertinent negatives: chest pain, fever, sore throat, vomiting. The patient has experienced similar episodes in the past. pt reports productive cough with yellow sputum for the last 2 weeks, no ill contacts, no fevers.. 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 - Coronavirus screen:: The patient has NOT traveled to [place], [place], or [place] in the past 14 days. - Social history:: Smoking status: . - Ebola Screening: : Patient denies travel to an Ebola-affected area in the 21 days before illness onset. ROS: 15:40 Constitutional: Negative for fever, chills, and weight loss, Eyes: Negative for injury, la1 pain, redness, and discharge, ENT: Negative for injury, pain, and discharge, Neck: Negative for injury, pain, and swelling, Cardiovascular: Negative for chest pain, palpitations, and edema. 15:40 Abdomen/GI: Negative for abdominal pain, nausea, vomiting, diarrhea, and constipation, Back: Negative for injury and pain, MS/Extremity: Negative for injury and deformity, Neuro: Negative for headache, weakness, numbness, tingling, and seizure, Endocrine: Negative for neck swelling, polydipsia, polyuria, polyphagia, and marked weight changes. 15:40 Respiratory: Positive for cough, with green sputum. Exam: 15:41 Constitutional: This is a well developed, well nourished patient who is awake, alert, la1 and in no acute distress. Head/Face: Normocephalic, atraumatic. Eyes: Pupils equal round and reactive to light, extra-ocular motions intact. Lids and lashes normal. Conjunctiva and sclera are non-icteric and not injected. Cornea within normal limits. Periorbital areas with no swelling, redness, or edema. ENT: Nares patent. No nasal discharge, no septal abnormalities noted. Tympanic membranes are normal and external auditory canals are clear. Oropharynx with no redness, swelling, or masses, exudates, or evidence of obstruction, uvula midline. Mucous membranes moist. Neck: Trachea midline, Supple, full range of motion without nuchal rigidity, or vertebral point tenderness. No Meningismus. Chest/axilla: Normal chest wall appearance and motion. Nontender with no deformity. No lesions are appreciated. Cardiovascular: Regular rate and rhythm with a normal S1 and S2. Respiratory: Lungs have equal breath sounds bilaterally, clear to auscultation and percussion. Abdomen/GI: Soft, non-tender, with normal bowel sounds. Back: No spinal tenderness. No costovertebral tenderness. Full range of motion. Skin: Warm, dry with normal turgor. Normal color with no rashes, no lesions, and no evidence of cellulitis. MS/ Extremity: Pulses equal, no cyanosis. Neurovascular intact. Full, normal range of motion. Vital Signs: 15:19 BP 122 / 87; Pulse 114; Resp 17; Temp 97.9(TE); Pulse Ox 100% on R/A; Weight 72.57 kg; tw2 Height 5 ft. 3 in. (160.02 cm); Pain 0/10; 15:19 Body Mass Index 28.34 (72.57 kg, 160.02 cm) tw2 MDM: 15:24 Patient medically screened. la1 15:33 Data reviewed: vital signs, nurses notes, and as a result, I will discharge patient. la1 Data interpreted: Pulse oximetry: on room air is 100 %. Interpretation: normal. Counseling: I had a detailed discussion with the patient and/or guardian regarding: the historical points, exam findings, and any diagnostic results supporting the discharge/admit diagnosis, the need for outpatient follow up, a family practitioner, to return to the emergency department if symptoms worsen or persist or if there are any questions or concerns that arise at home. Special discussion: I discussed with the patient/guardian that the patient's current presentation does not indicate dosing of antibiotics. They should follow-up with their primary care provider and return if the symptoms persist or progress. Administered Medications: 15:38 Drug: Albuterol - atroVENT (3:1) (2.5 mg - 0.5 mg) 3 ml Route: Nebulizer; sv 16:07 Follow up: Response: No adverse reaction Disposition: 16:32 Co-signature as Attending Physician, Darius Duron MD. rn Disposition: 08/09/19 15:52 Discharged to Home. Impression: Acute upper respiratory infection, unspecified. - Condition is Stable. - Discharge Instructions: Acute Bronchitis, Adult, Viral Respiratory Infection, Cough, Adult. - Prescriptions for Medrol (Sreedhar) 4 mg Oral Tablets, Dose Pack - take 1 tablet by ORAL route as directed - follow package instructions; 1 packet. Albuterol Sulfate 90 mcg/actuation - inhale 1-2 puff by INHALATION route every 4-6 hours; 1 Inhaler. Guaifenesin AC 10- 100 mg/5 mL Oral Liquid - take 10 milliliter by ORAL route every 4 hours As needed; 240 milliliter. - Work release form, Medication Reconciliation Form, Thank You Letter form. - Follow up: Private Physician; When: 2 - 3 days; Reason: Recheck today's complaints, Re-evaluation by your physician. - Problem is new. - Symptoms have improved. Signatures: Tashia Ortega RN RN Darius Duron MD MD rn Attema, Lee, CUSTOMER ACCOUNTS ADVISOR-C CUSTOMER ACCOUNTS ADVISOR-Cla1 Milka Price RN RN tw2 Peyton Reynolds RN RN Corrections: (The following items were deleted from the chart) 16:08 15:52 08/09/2019 15:52 Discharged to Home. Impression: Acute upper respiratory ah infection, unspecified. Condition is Stable. Discharge Instructions: Acute Bronchitis, Adult, Viral Respiratory Infection, Cough, Adult. Prescriptions for Medrol (Sreedhar) 4 mg Oral Tablets, Dose Pack - take 1 tablet by ORAL route as directed - follow package instructions; 1 packet, Albuterol Sulfate 90 mcg/actuation - inhale 1-2 puff by INHALATION route every 4-6 hours; 1 Inhaler, Guaifenesin AC 10-100 mg/5 mL Oral Liquid - take 10 milliliter by ORAL route every 4 hours As needed; 240 milliliter. and Forms are Work release form, Medication Reconciliation Form, Thank You Letter, Antibiotic Education, Prescription Opioid Use. Follow up: Private Physician; When: 2 - 3 days; Reason: Recheck today's complaints, Re-evaluation by your physician. Problem is new. Symptoms have improved. la1
[2019-08-09 16:31] VITALS: BP 122/87; TEMP 97.9; O2SAT 100
== END 2019-08-09 16:08 | disposition home or self-care (01) ==
LOC: ER 15:13
DX: J06.9 Acute upper respiratory infection, unspecified (principal); E11.9 Type 2 diabetes mellitus without complications
CPT/HCPCS: 94640; 99284

== ENCOUNTER 2020-02-10 20:00 | Emergency (ER) | payer OTHER, SELFPAY ==
--- OUTSIDE RECORDS SUMMARY | 2020-02-10 20:02 | XMS REPORT | Continuity of Care Document ---
:1995 Author Organization [facility] Care Team Providers Name Role Phone [facility] Unavailable Un available Problems Problem Status Onset Classification Date Comments Sourc e Date Reported E11.9 TYPE 2 Active [place] DIABETES 7 MELLITUS WITHOUT C N60.19 - Active [facility] DIFFUSE CYSTIC 6 Minnie and MASTOPATHY OF U Medications No Data Provided for This Section Allergies, Adverse Reactions, Alerts No Known Medication Allergies Immunizations No Data Provided for This Section Results No Data Provided for This Section Pathology Reports No Data Provided for This Section Diagnostic Reports Report Value Date Source Pelvis Transvaginal US PROCEDURE: TRANSVAGINAL PELVIS ULTRASOUND 09/28/2016 JEFFREY Ruelas CLINICAL INDICATION: E28.2. Polycystic ovarian s yndrome. COMPARISON: None. TECHNIQUE: Transvaginal ultr asound of the pelvis was performed with forbes scale and supplemental color flow and Doppler imaging. Static images are submitted. FINDINGS: UTERUS: The uterus measures 4.6 x 2.5 x 2.9 cm (length x AP x width). The maximal endometrial stripe thickness measures 0.09 cm. LMP in 2014. There is no uterine leiomyoma. The visualized portions of the cervix are unremarkable. OVARIES: The right ovary javon sures 4.5 x 2.7 x 2.8 cm. There are approximately 15 subcentimeter follicles in a single image for the right ovary. Arterial flow is demonstrated in the right ovary by spectral Doppler analysis. The left ovary measures 3.1 x 1.9 x 4.3 cm. There are approximately 10 subcentimeter follicles in a single image for the left ovary. Arterial flow is demonstrated in the left ovary by spectral Doppler analysis. ADDITIONAL FINDINGS: There i s trace free fluid in the right adnexa and cul-de-sac. There is no demonstrable adnexal mass. IMPRESSION: 1. There are multiple subcen timeter follicles in both ovaries compatible with the history of polycystic ovarian syndrome. 2. Trace pelvic free fluid. 3. Otherwise unremarkable transvaginal pelvis ul trasound. SL: 15 Breast Limited Uni US - BREAST LIMITED UNI US/L 10/28/2015 SARAH Ruelas ULTRASOUND OF LEFT BREAST: 10/28/2015 CLINICAL: Diffuse Cystic Mastopathy. No prior exams were available for comparison. Color flow and real-time ultrasound of the left breast were performed. No abnormalities were seen s onographically in the left breast. There is normal appearing fibroglandular tissue in the region of the palpable finding. IMPRESSION: BENIGN There is no sonographic evidence of malignancy. These results were discussed with the patient, who was instructed to return if she notices any new palpable abnormalities. Shadi Sands M.D. cm/:10/28/2015 10:28:06 Internal Controls Specialist: Renetta Ayala [facility] This exam was dictated and interpreted by [id number] for SARAH Ruelas, MARY 15. letter sent: Normal exam Ultrasound BI-RADS: 2 Benign Consultation Notes No Data Provided for This Section Discharge Summaries No Data Provided for This Section History and Physicals No Data Provided for This Section Vital Signs No Data Provided for This Section Encounters Location Location Encounter Encounter Reason Attending ADM [place] Stat us Source Details Type Number For Provider Date Date Visit [facility] Outpt Diag [id number] Lai 10/27 10/28 [facility] Outpt Diag [id number] Leyda 09/28 09/29 [facility] [place] [facility] [id number] LOAN [facility]10 [id number] 06/13 Active [facility] Procedures No Data Provided for This Section Assessment and Plan No Data Provided for This Section Plan of Care No Data Provided for This Section Social History Social History Date Source No data available for this 09/29/2016 JEFFREY Hartman and section Family History No Data Provided for This Section Advance Directives No Data Provided for This Section Functional Status No Data Provided for This Section
[2020-02-10] MEDS ORDERED: IBUPROFEN 400 MG TAB ONE (21:15)
[2020-02-10] MEDS ORDERED: IBUPROFEN 200 MG TAB PO ONE (21:15)
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
[2020-02-10 23:41] VITALS: O2SAT 100
[2020-02-10 23:47] VITALS: BP 120/84; TEMP 98.5
--- NOTE | 2020-02-11 12:02 | RAD REPORT ---
EXAM DESCRIPTION: Head C Spine Mpr Wo Con CLINICAL HISTORY: PAIN COMPARISON: None Available TECHNIQUE: Contiguous axial CT images of the head cervical spine were obtained. No intravenous contr ast was administered. Coronal and sagittal reconstructions were created from the axial data. This exam was performed according to our departmental dose-optimization program, which includes autom ated exposure control, adjustment of the mA and/or kV according to patient size and/or use of iterati ve reconstruction technique. FINDINGS: There is no evidence of acute mass, mass effect, midline shift or hemorrhage. The ventricl es and extra-axial CSF spaces are unremarkable. The brain parenchyma appears normal for the patient's age. No acute abnormalities of the bones is seen. There is no spondylolisthesis. No prevertebral sof t tissue swelling. No fracture is seen. IMPRESSION: No acute intracranial abnormality. No acute cervical spine abnormality. Electronically signed by: Joseph Liriano 02/10/2020 10:44 PM CDT Due to temporary technical issues with the PACS/Fluency reporting system, reports are being signed by the in house radiologist without review as a courtesy to ensure prompt reporting. The interpreting r adiologist is fully responsible for the content of the report.
== END 2020-02-10 23:27 | disposition home or self-care (01) ==
LOC: ER 20:00
DX: S16.1XXA Strain of muscle, fascia and tendon at neck level, initial encounter (principal); V43.62XA Car passenger injured in collision with other type car in traffic accident, initial encounter; E11.9 Type 2 diabetes mellitus without complications
CPT/HCPCS: 70450; 72125; 99283

== ENCOUNTER 2020-12-03 17:37 | Emergency (ER) | payer OTHER ==
[2020-12-03 19:37] LABS: Urine Blood Negative (Negative); Urine Glucose Negative (Negative); Urine Protein Negative (Negative)
[2020-12-03 22:37] LABS: SARS-COV-2 RT PCR NEGATIVE (NEGATIVE)
--- NOTE | 2020-12-03 22:52 | EDPHYS ---
Physician Documentation [facility] Name: Teagan Welch Age: 25 yrs Sex: Female : 1995 Arrival Date: 12/03/2020 Time: 17:39 Bed 13 Private MD: ED Physician Darius Duron HPI: 12/03 21:20 This 25 yrs old Female presents to ER via Ambulatory with complaints of Abdominal cp Cramping, Headache, Vomiting, Cough. 21:20 The patient or guardian reports cough, that is intermittent. cp 21:20 Onset: The symptoms/episode began/occurred 3 day(s) ago. Associated signs and symptoms: cp Pertinent positives: intermittent headache but no headache now, intermittent lower abdomen pain but no abdominal pain now, nausea and vomiting, Pertinent negatives: chest pain, diarrhea, fever. 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 - Social history:: Smoking status: Smoking status: unknown. ROS: 21:30 Constitutional: Negative for body aches, chills, fever, poor PO intake. cp 21:30 Eyes: Negative for injury, pain, redness, and discharge. cp 21:30 ENT: Negative for drainage from ear(s), ear pain, sore throat, difficulty swallowing, difficulty handling secretions. 21:30 Cardiovascular: Negative for chest pain. 21:30 Respiratory: Positive for cough, with no reported sputum, Negative for shortness of breath, wheezing. 21:30 Abdomen/GI: Negative for abdominal pain, vomiting, diarrhea, constipation. 21:30 : Negative for urinary symptoms, pelvic pain, vaginal bleeding, vaginal discharge. 21:30 Skin: Negative for rash. 21:30 Neuro: Negative for altered mental status, dizziness, headache, weakness. 21:30 All other systems are negative. Exam: 21:33 Constitutional: The patient appears in no acute distress, alert, awake, comfortable, cp non-toxic, well developed, well nourished. 21:33 Head/Face: Normocephalic, atraumatic. cp 21:33 Eyes: Periorbital structures: appear normal, Conjunctiva: normal, no exudate, no injection, Sclera: no appreciated abnormality, Lids and lashes: appear normal, bilaterally. 21:33 ENT: External ear(s): are unremarkable, Ear canal(s): are normal, clear, TM's: dullness, bilaterally, Nose: is normal, Mouth: Lips: moist, Oral mucosa: moist, Posterior pharynx: Airway: no evidence of obstruction, patent, Tonsils: no enlargement, no erythema, no exudate. 21:33 Neck: ROM/movement: is normal, is supple, without pain, no range of motions limitations. 21:33 Chest/axilla: Inspection: normal. 21:33 Cardiovascular: Rate: normal, Rhythm: regular. 21:33 Respiratory: the patient does not display signs of respiratory distress, Respirations: normal, no use of accessory muscles, no retractions, labored breathing, is not present, Breath sounds: are clear throughout, no decreased breath sounds, no stridor, no wheezing. 21:33 Abdomen/GI: Inspection: abdomen appears normal, Palpation: abdomen is soft and non-tender, in all quadrants. 21:33 Back: CVA tenderness, is absent. 21:33 Neuro: Orientation: to person, place \T\ time. Mentation: is normal. Vital Signs: 18:46 BP 128 / 86; Pulse 84; Resp 18; Temp 97.9; Pulse Ox 98% on R/A; Weight 70.31 kg; Height ph 5 ft. 3 in. (160.02 cm); 23:26 BP 122 / 84; Pulse 82; Resp 16; Pulse Ox 100% ; jm8 18:46 Body Mass Index 27.46 (70.31 kg, 160.02 cm) ph MDM: 21:02 Patient medically screened. cp 21:30 Differential Diagnosis: Bronchitis Influenza Pharyngitis Otitis Media Viral Syndrome cp Pneumonia. 22:51 Data reviewed: vital signs, nurses notes, lab test result(s), and as a result, I will cp discharge patient. 22:51 Counseling: I had a detailed discussion with the patient and/or guardian regarding: the cp historical points, exam findings, and any diagnostic results supporting the discharge/admit diagnosis, lab results, to return to the emergency department if symptoms worsen or persist or if there are any questions or concerns that arise at home. 12/03 19:37 Order name: Urine Dipstick-Ancillary; Complete Time: 21:14 EDWY 12/03 21:15 Interpretation: Reviewed. 12/03 19:41 Order name: Urine --Ancillary (enter results); Complete Time: 21:14 tt3 12/03 21:17 Order name: Strep; Complete Time: 22:04 12/03 22:04 Interpretation: Reviewed. 12/03 21:54 Order name: Throat Culture EDWY 12/03 19:41 Order name: Urine Test (obtain specimen); Complete Time: 19:41 tt3 12/03 22:37 Order name: COVID-19/FLU A+B EDW[facility] Administered Medications: No medications were administered Disposition: 12/04 01:16 Co-signature as Attending Physician, Darius Duron MD. rn Disposition: 12/03/20 22:52 Discharged to Home. Impression: Cough. - Condition is Stable. - Discharge Instructions: Cough, Adult. - Prescriptions for Tessalon Perles 100 mg Oral Capsule - take 1 capsule by ORAL route every 8 hours As needed; 30 capsule. - Medication Reconciliation Form, Thank You Letter, Antibiotic Education, Prescription Opioid Use form. - Follow up: Private Physician; When: 2 - 3 days; Reason: Worsening of condition. - Problem is new. - Symptoms have improved. Signatures: Dispatcher [employer] [facility] Darius Duron MD MD rn Hall, Patricia, RN RN ph Page, Corey, PA PA cp Jose, Kareem tt3 Jeffrey Al RN RN jm8 Corrections: (The following items were deleted from the chart) 12/03 21:54 21:17 CORONAVIRUS+MR.LAB.BRZ ordered. [facility] 21:54 21:17 Influenza Screen (A \T\ B)+BA.LAB.BRZ ordered. [facility] 23:27 22:52 12/03/2020 22:52 Discharged to Home. Impression: Cough. Condition is Stable. jm8 Forms are Medication Reconciliation Form, Thank You Letter, Antibiotic Education, Prescription Opioid Use. Follow up: Private Physician; When: 2 - 3 days; Reason: Worsening of condition. Problem is new. Symptoms have improved. cp
--- NOTE | 2020-12-03 22:52 | ER ---
Nurse's Notes [facility] Name: Teagan Welch Age: 25 yrs Sex: Female : 1995 Arrival Date: 12/03/2020 Time: 17:39 Bed 13 Private MD: Diagnosis: Cough Presentation: 12/03 18:46 Chief complaint: Patient states: Cough and nausea after eating x 3 days, headache and ph abdominal cramping x 1 day, denies fever, V/D. Coronavirus screen: cough unrelated to allergies, headache. Ebola Screen: No symptoms or risks identified at this time. Initial Sepsis Screen: Does the patient meet any 2 criteria? No. Patient's initial sepsis screen is negative. Does the patient have a suspected source of infection? No. Patient's initial sepsis screen is negative. Risk Assessment: Do you want to hurt yourself or someone else? Patient reports no desire to harm self or others. Onset of symptoms was December 03, 2020. 18:46 Method Of Arrival: Ambulatory ph 18:46 Acuity: JAMES 3 ph RN TRANSITION: 21:50 LMP 11/15/2020 jm8 Historical: - Allergies: 18:48 No Known Allergies; ph - PMHx: 18:48 Bronchitis; Diabetes - NIDDM; PCOS; ph - PSHx: 18:48 None; ph - Immunization history:: Adult Immunizations up to date. - Social history:: Smoking status: Smoking status: unknown. Screenin:49 Abuse screen: Denies threats or abuse. Denies injuries from another. Nutritional jm8 screening: No deficits noted. Tuberculosis screening: No symptoms or risk factors identified. Fall Risk None identified. Assessment: 21:47 General: Appears in no apparent distress. comfortable, Behavior is calm, cooperative, jm8 appropriate for age. Pain: Complains of pain in head Pain currently is 10 out of 10 on a pain scale. Also complains of nausea. Neuro: No deficits noted. Level of Consciousness is awake, alert, obeys commands, Oriented to person, place, time. Cardiovascular: No deficits noted. Respiratory: Reports cough that is Airway is patent Trachea midline Respiratory effort is even, unlabored, Respiratory pattern is regular, symmetrical. GI: Bowel sounds present X 4 quads. Abd is soft and non tender X 4 quads. Reports lower abdominal pain, upper abdominal pain, cramping, nausea, vomiting. : No deficits noted. No signs and/or symptoms were reported regarding the genitourinary system. EENT: No deficits noted. No signs and/or symptoms were reported regarding the EENT system. Derm: No deficits noted. No signs and/or symptoms reported regarding the dermatologic system. Musculoskeletal: No deficits noted. No signs and/or symptoms reported regarding the musculoskeletal system. Vital Signs: 18:46 BP 128 / 86; Pulse 84; Resp 18; Temp 97.9; Pulse Ox 98% on R/A; Weight 70.31 kg; Height ph 5 ft. 3 in. (160.02 cm); 23:26 BP 122 / 84; Pulse 82; Resp 16; Pulse Ox 100% ; jm8 18:46 Body Mass Index 27.46 (70.31 kg, 160.02 cm) ED Course: 17:39 Patient arrived in ED. as 18:48 Triage completed. ph 18:48 Arm band placed on Patient placed in waiting room, Patient notified of wait time. 21:00 Lee Valencia PA is PHCP. 21:00 Darius Duron MD is Attending Physician. cp 21:49 Patient has correct armband on for positive identification. Bed in low position. Call jm8 light in reach. Side rails up X2. Adult w/ patient. 23:26 No provider procedures requiring assistance completed. Patient did not have IV access jm8 during this emergency room visit. Administered Medications: No medications were administered Outcome: 22:52 Discharge ordered by MD. cp 23:27 Discharged to home ambulatory. jm8 23:27 Condition: good 23:27 Discharge instructions given to patient, Instructed on discharge instructions, follow up and referral plans. medication usage, Demonstrated understanding of instructions, follow-up care, medications. 23:27 Patient left the ED. jm8 Signatures: Mariza Mac Patricia, RN RN Lee Valencia PA PA cp Jeffrey Al RN RN jm8 Corrections: (The following items were deleted from the chart) 21:49 21:47 Respiratory: No deficits noted. Airway is patent Trachea midline Respiratory jm8 effort is even, unlabored, Respiratory pattern is regular, symmetrical, jm8
[2020-12-03 23:49] VITALS: TEMP 97.9
[2020-12-03 23:50] VITALS: BP 122/84; O2SAT 100
== END 2020-12-03 23:27 | disposition home or self-care (01) ==
LOC: ER 17:37
DX: R05 Cough (principal); Z20.822 Contact with and (suspected) exposure to COVID-19; E11.9 Type 2 diabetes mellitus without complications
CPT/HCPCS: 87070; 81025; 87081; 81003; 0240U; 99281